=== PATIENT | male | born 1960 | race Caucasian/White ===

== ENCOUNTER 2021-11-15 12:48 | Emergency (ER) | payer OTHER, SELFPAY ==
[2021-11-15 13:08] VITALS: BP 124/78; PULSE 62; RESP 20; TEMP 36.6; O2SAT 96; BMI 45.6
--- NOTE | 2021-11-15 13:30 | XRR_ITS ---
PROCEDURE INFORMATION: Exam: XR Chest Exam date and time: 11/15/2021 1:30 PM Age: 60 years old Clinical indication: Shortness of breath; Patient HX: SOB TECHNIQUE: Imaging protocol: XR of the chest. Views: 1 view. Total images: 1 COMPARISON: No relevant prior studies available. FINDINGS: Lungs: No visible active interstitial or alveolar airspace disease. Rare calcified granuloma of antecedent disease. Pleural spaces: No pleural effusion. No pneumothorax. Heart/Mediastinum: Cardiac structures and configuration with mild arteriosclerosis. Bones/joints: Mild scoliotic curvature of the spine. Other findings: Obesity. XR/XR chest 1V portable [id number] IMPRESSION: Nonacute.
--- NOTE | 2021-11-15 14:34 | CTR_ITS ---
PROCEDURE INFORMATION: Exam: CTA Chest With Contrast Exam date and time: 11/15/2021 2:34 PM Age: 60 years old Clinical indication: Shortness of breath; Patient HX: C/O SOB; Additional info: Eval for pe TECHNIQUE: Imaging protocol: Computed tomographic angiography of the chest with contrast. 3D rendering (Not supervised by radiologist): MIP and/or 3D reconstructed images were created by the technologist. Total images: 1045 Radiation optimization: All CT scans at this facility use at least one of these dose optimization techniques: automated exposure control; mA and/or kV adjustment per patient size (includes targeted exams where dose is matched to clinical indication); or iterative reconstruction. Contrast material: OMNI 350; Contrast volume: 79 ml; Contrast route: INTRAVENOUS (IV); COMPARISON: CR (CHEST, ) 11/15/2021 3:49 PM RADIATION DOSE METRICS: Total DLP (mGy-cm): 653.46 FINDINGS: Pulmonary arteries: No visible evidence of pulmonary embolism/pulmonary arterial thrombus. Aorta: The thoracic aorta is nonaneurysmal. Mild arteriosclerosis. Tortuous thoracic aorta often seen in hypertensive cardiovascular disease. Lungs: COPD/chronic bronchitis. Rare bullous/bleb. Calcified granulomas of antecedent disease. No visible active interstitial or alveolar airspace disease. Pleural spaces: No pneumothorax. No pleural effusion. Heart: No cardiomegaly. No visible pericardial effusion. Moderately advanced 3 vessel coronary artery disease. Lymph nodes: Few small mediastinal and hilar lymph nodes of doubtful clinical significance. Liver: Diffuse fatty infiltration of the liver with hepatomegaly. Bones/joints: No visible acute osseous abnormality. Antecedent compression wedge deformity T12. Degenerative disease of the spine with spondylosis deformans primarily distal thoracic spine. Soft tissues: Marked morbid obesity. Other findings: Increased quantum mottle artifact which degrades image quality and detail assessment. Motion artifact. CT/CT angio chest PE protcl [id number] IMPRESSION: No visible evidence of pulmonary embolism/pulmonary arterial thrombus.
[2021-11-15 15:01] LABS: Basophils % 0.1 %; Eosinophils % 0.1 %; Hematocrit 47.9 % (42.0-52.0); Hemoglobin 15.3 g/dL (11.7-16.6); Lymphocytes % 23.7 %; Mean Corpuscular HGB Conc 31.9 g/dL (30.0-36.0); Mean Corpuscular Hemoglobin 29.1 pg (28.0-34.0); Mean Corpuscular Volume 91.2 fl (80-94); Mean Platelet Volume 10.2 fL (7.4-10.4); Monocytes % 11.7 %; Neutrophils # 5.38 10^3/uL (1.8-7.7); Neutrophils % 63.8 %; Nucleated Red Blood Cells % 0 %; Platelet Count 286 10^3/cmm (130-400); Red Blood Count 5.25 10^6/uL (4.1-5.3); Red Cell Distribution Width 15.8 % (12.1-15.1); White Blood Count 8.4 10^3/uL (4.0-10.0)
[2021-11-15 15:13] VITALS: BP 142/79; PULSE 62; RESP 16; O2SAT 95
[2021-11-15 15:24] LABS: INR 0.81 (0.8-1.2)
[2021-11-15 15:27] LABS: D Dimer 0.82 ug/mIFEU (0-0.59)
[2021-11-15 15:28] LABS: Lactate (Lactic Acid level) 1.6 mmol/L (0.5-2.2)
[2021-11-15 15:29] LABS: Alanine Aminotransferase 49 U/L (0-41); Albumin Level 3.8 g/dL (3.5-5.2); Alkaline Phosphatase 103 IU/L (40-130); Anion Gap 15.8 (5-19); Aspartate Amino Transferase 45 U/L (0-40); Blood Urea Nitrogen 18 mg/dL (8-23); Calcium 8.4 mg/dL (8.5-10.5); Carbon Dioxide 25 mmol/L (22-29); Chloride 103 mmol/L (98-107); Globulin 3.1 g/dL (1.3-4.6); Glomerular Filtration Rate 68.3 mL/min (90-130); Glucose 126 mg/dL (65-115); Osmolality Calculated 293 mOsm/kg (285-295); Potassium 3.8 mmol/L (3.5-5.1); Sodium 140 mmol/L (136-145); Total Bilirubin 0.2 mg/dL (0.15-1.2); Total Protein 6.9 g/dL (6.6-8.7)
--- NOTE | 2021-11-15 15:33 | ED_ITS ---
HPI - General Adult General: Chief complaint: Shortness of Breath/Dyspnea Stated complaint: sob, flu like symptoms, positive result at home Time Seen by Provider: 11/15/21 14:34 History of Present Illness: HPI narrative: 60-year-old male with history of diabetes, hypertension, smoking presents to the emergency room for concerns that I might have blood clot. . Patient was told that he is D-dimer is 2.8 and he googled his number which popped up online with concerns for possible blood clot. Patient has no pleuritic chest pain. Patient has been diagnosed with COVID since Tuesday and went to [facility] emergency room diagnosed with COVID. Patient tells me that at that time, CTA was not performed. Patient tells me that clinically he is feels better with the Tylenol and Zofran that he received since his last visit. Patient is tolerating p.o. without any difficulty. No complains of nausea vomiting or diarrhea. Patient says that his fevers under control. Patient denies any unilateral leg swelling, prior history of VTE's, hemoptosis or other issues. Onset: 5 days ago Duration:5 days Location:home Severity:moderate Associated symptoms: Reports dyspnea and malaise; Deny chest pain, nausea, rash, palpitations or vomiting Review of Systems Const: Reports: fever(s), fatigue and malaise; Denies: chills Eyes: Denies: change in vision ENMT: Denies: mouth pain Card: Denies: chest pain or palpitations Resp: Reports: dyspnea and non-productive cough GI: Denies: abdominal pain, nausea, vomiting or diarrhea : Denies: dysuria Musc: Denies: extremity pain Skin/Breast: Denies: rash or new lesions Neuro: Denies: weakness in extremities Psych: Reports: other (Normal mood) Mike/Lymph: Denies: easy bruising PFSH ED PFSH: Medical History COVID Diabetes Hypertension Smoking Social History (Updated 11/15/21 @ 15:36 by Marlyn Keita MD) Smoking and tobacco status: current every day smoker Alcohol intake: never Physical Exam Const: COMMON NORMALS: alert HENMT: COMMON NORMALS: atraumatic HEAD & SCALP: atraumatic MOUTH: moist mucous membranes not abnormal Eye: COMMON NORMALS: EOMs intact bilaterally and conjunctivae normal CONJUNCTIVA: Yes conjunctivae normal Neck/C-Spine: COMMON NORMALS: full ROM and supple Resp: COMMON NORMALS: normal respiratory effort and clear to auscultation bilaterally AUSCULTATION: clear to auscultation bilaterally Cardio: COMMON NORMALS: regular rate RATE: regular rate GI: COMMON NORMALS: Soft to palpation and non-tender PALPATION: Yes Soft to palpation Extremity: COMMON NORMALS: full ROM Neuro: SENSORIUM/ORIENTATION: Yes alert MOTOR EXAM: No Abnormal motor strength present and Other motor observations present (no focal motor deficits) Psych: COMMON NORMALS: speech normal SPEECH: Yes normal speech MOOD & AFFECT: Yes euthymic mood Course Vital Signs: Vital signs: Vital Signs Temperature 97.9 F 11/15/21 13:08 Pulse Rate 66 11/15/21 16:30 Respiratory Rate 20 H 11/15/21 16:30 Blood Pressure 115/61 11/15/21 16:30 Pulse Oximetry 95 11/15/21 16:30 MDM - General Adult MDM Narrative Medical decision making narrative: Patient is a 60-year-old male presenting to emergency room for concerns of srinivas given elevated D-dimer from previous ED evaluation. Patient is noted be satting greater than 95%. No acute focal findings on lung exam X-ray is negative for any acute finding. Creatinine within normal. CTA negative for PE. At the present time, I have offered patient monoclonal antibody infusion given age and comorbidities. However, patient declined at this time citing that he does not want to receive any antiviral therapies. Discussed the risk of not receiving medical infusion including possible future hospitalization and prolonging covid symptoms. Patient verablizes understanding of these risks and choose to not go through with MCA infusion. Rx tylenol PRN fever and zofran PRN nausea/vomiting He has a pulse ox at home and is instructed to use a pulse ox. I have given patient strict return precaution for any drops in the pulse ox to less than 88% while on oxygen. Disposition: Discharge. Patient counseled regarding diagnostic impression, treatment plan. Patient given ED strict return precautions to return for continuation, worsening, or development of new symptoms. Instructed to f/u w/ PCP regarding symptoms today. Patient verbalized understanding. Lab Data Result diagrams: 11/15/21 14:54 11/15/21 14:54 Labs: Lab Results 11/15/21 11/15/21 11/15/21 14:54 14:54 14:54 WBC 8.4 10^3/uL 10^3/uL (4.0-10.0) RBC 5.25 10^6/uL 10^6/uL (4.1-5.3) Hgb 15.3 g/dL g/dL (11.7-16.6) Hct 47.9 % % (42.0-52.0) MCV 91.2 fl fl (80-94) MCH 29.1 pg pg (28.0-34.0) MCHC 31.9 g/dL g/dL (30.0-36.0) RDW 15.8 % H % (12.1-15.1) Plt Count 286 10^3/cmm 10^3/cmm (130-400) MPV 10.2 fL fL (7.4-10.4) Neut % (Auto) 63.8 % % Lymph % (Auto) 23.7 % % [place] % (Auto) 11.7 % % Eos % (Auto) 0.1 % % Baso % (Auto) 0.1 % % Neut # (Auto) 5.38 10^3/uL 10^3/uL (1.8-7.7) Lymph # (Auto) 2.0 10^3/uL 10^3/uL (0.8-4.8) [place] # (Auto) 1.0 10^3/uL H 10^3/uL (0.2-0.9) Eos # (Auto) 0.0 10^3/uL 10^3/uL (0.0-0.8) Baso # (Auto) 0.0 10^3/uL 10^3/uL (0.0-0.1) Nucleated RBC % (auto) 0 % % Nucleated RBCs # 0.0 /100WBC /100WBC PT 11.40 SECONDS L SECONDS (12.1-14.9) INR 0.81 (0.8-1.2) D-Dimer 0.82 ug/mIFEU H ug/mIFEU (0-0.59) Sodium 140 mmol/L mmol/L (136-145) Potassium 3.8 mmol/L mmol/L (3.5-5.1) Chloride 103 mmol/L mmol/L (98-107) Carbon Dioxide 25 mmol/L mmol/L (22-29) Anion Gap 15.8 (5-19) BUN 18 mg/dL mg/dL (8-23) Creatinine 1.1 mg/dL mg/dL (0.7-1.2) GFR Calculation 68.3 mL/min L mL/min (90-130) Glucose 126 mg/dL H mg/dL (65-115) Calculated Osmolality 293 mOsm/kg mOsm/kg (285-295) Lactate Calcium 8.4 mg/dL L mg/dL (8.5-10.5) Total Bilirubin 0.2 mg/dL mg/dL (0.15-1.2) AST 45 U/L H U/L (0-40) ALT 49 U/L H U/L (0-41) Alkaline Phosphatase 103 IU/L IU/L (40-130) Total Protein 6.9 g/dL g/dL (6.6-8.7) Albumin 3.8 g/dL g/dL (3.5-5.2) Globulin 3.1 g/dL g/dL (1.3-4.6) 11/15/21 14:54 WBC RBC Hgb Hct MCV MCH MCHC RDW Plt Count MPV Neut % (Auto) Lymph % (Auto) [place] % (Auto) Eos % (Auto) Baso % (Auto) Neut # (Auto) Lymph # (Auto) [place] # (Auto) Eos # (Auto) Baso # (Auto) Nucleated RBC % (auto) Nucleated RBCs # PT INR D-Dimer Sodium Potassium Chloride Carbon Dioxide Anion Gap BUN Creatinine GFR Calculation Glucose Calculated Osmolality Lactate 1.6 mmol/L mmol/L (0.5-2.2) Calcium Total Bilirubin AST ALT Alkaline Phosphatase Total Protein Albumin Globulin Imaging Data^ Other Imaging: Radiologist's impression: [address] [id number] ReportSigned Patient: Paulette Gordillo #: [id number]: 1Acct#:[id number]/Sex: 60 / MADM Date: 11/15/21Loc: ERRoom/Bed:Attending Dr: Ordering Provider/Ordering MD: Alyssa Mclain , [employer]EVEL BUSINESS ANALYST- Date of Service: 11/15/21 Procedure(s): XR chest 1V portable [id number] Accession Number(s): [id number] Report Number: [id number] PROCEDURE INFORMATION: Exam: XR Chest Exam date and time: 11/15/2021 1:30 PM Age: 60 years old Clinical indication: Shortness of breath; Patient HX: SOB TECHNIQUE: Imaging protocol: XR of the chest. Views: 1 view. Total images: 1 COMPARISON: No relevant prior studies available. FINDINGS: Lungs: No visible active interstitial or alveolar airspace disease. Rare calcified granuloma of antecedent disease. Pleural spaces: No pleural effusion. No pneumothorax. Heart/Mediastinum: Cardiac structures and configuration with mild arteriosclerosis. Bones/joints: Mild scoliotic curvature of the spine. Other findings: Obesity. XR/XR chest 1V portable [id number] IMPRESSION: Nonacute. Dictated By:Maurice Mansfield By:Maurice Mansfield Date/Time:11/15/21 1611DD/ [address] [id number] Scan ReportSigned Patient: Paulette Gordillo #: [id number]: 1960cct#:[id number]/Sex: 60 / MADM Date: 11/15/21Loc: ERRoom/Bed:Attending Dr: Ordering Provider/Ordering MD: Marlyn Keita MD Date of Service: 11/15/21 Procedure(s): CT angio chest PE protcl [id number] Accession Number(s): [id number] Report Number: [id number] PROCEDURE INFORMATION: Exam: CTA Chest With Contrast Exam date and time: 11/15/2021 2:34 PM Age: 60 years old Clinical indication: Shortness of breath; Patient HX: C/O SOB; Additional info: Eval for pe TECHNIQUE: Imaging protocol: Computed tomographic angiography of the chest with contrast. 3D rendering (Not supervised by radiologist): MIP and/or 3D reconstructed images were created by the technologist. Total images: 1045 Radiation optimization: All CT scans at this facility use at least one of these dose optimization techniques: automated exposure control; mA and/or kV adjustment per patient size (includes targeted exams where dose is matched to clinical indication); or iterative reconstruction. Contrast material: OMNI 350; Contrast volume: 79 ml; Contrast route: INTRAVENOUS (IV); COMPARISON: CR (CHEST, ) 11/15/2021 3:49 PM RADIATION DOSE METRICS: Total DLP (mGy-cm): 653.46 FINDINGS: Pulmonary arteries: No visible evidence of pulmonary embolism/pulmonary arterial thrombus. Aorta: The thoracic aorta is nonaneurysmal. Mild arteriosclerosis. Tortuous thoracic aorta often seen in hypertensive cardiovascular disease. Lungs: COPD/chronic bronchitis. Rare bullous/bleb. Calcified granulomas of antecedent disease. No visible active interstitial or alveolar airspace disease. Pleural spaces: No pneumothorax. No pleural effusion. Heart: No cardiomegaly. No visible pericardial effusion. Moderately advanced 3 vessel coronary artery disease. Lymph nodes: Few small mediastinal and hilar lymph nodes of doubtful clinical significance. Liver: Diffuse fatty infiltration of the liver with hepatomegaly. Bones/joints: No visible acute osseous abnormality. Antecedent compression wedge deformity T12. Degenerative disease of the spine with spondylosis deformans primarily distal thoracic spine. Soft tissues: Marked morbid obesity. Other findings: Increased quantum mottle artifact which degrades image quality and detail assessment. Motion artifact. CT/CT angio chest PE protcl [id number] IMPRESSION: No visible evidence of pulmonary embolism/pulmonary arterial thrombus. Dictated By:Maurice Mansfield By:Maurice Mansfield Date/Time:11/15/21 1627DD/ 1434 Discharge Plan Discharge Patient Disposition: Home Clinical Impression: COVID, Acute dyspnea, Cough, Generalized weakness Condition: Stable Prescriptions: New acetaminophen 500 mg tablet 500 mg PO Q6H PRN (Reason: pain) 5 Days Qty: 20 0RF Discharge Orders: Discharge ED (Routine); Ordered 11/15/21 Ordered By: Marlyn Keita Discharge Diet: Advance as tolerated Discharge Activity: Increase activity as tolerated Patient Instructions: COVID-19 (Coronavirus Disease 2019) (ED) Activity Restrictions/Additional Instructions: Come back to the emergency room if your symptoms worsen, have any shortness of breath, fever/chills, dehydration, inability tolerate p.o., any difficulty breathing, or any new or concerning complaints. Please return the emergency room if your pulse ox reads less than 88%. Coding Level of Care Code ED Jewelsmith for Chg Fwd Exam Comprehensive
[2021-11-15 16:00] VITALS: BP 123/61; PULSE 58; RESP 15; O2SAT 97
[2021-11-15] MEDS: iohexol 350 mg/mL 100 mL Btl IV (16:04)
[2021-11-15 16:30] VITALS: BP 115/61; PULSE 66; RESP 20; O2SAT 95
--- NOTE | 2021-11-15 16:33 | PC.NURSE ---
REVIEWED DISCHARGE INSTRUCTIONS WITH PATIENT, PATIENT VERBALIZES UNDERSTANDING OF ALL INSTRUCTIONS, MEDICATIONS AND FOLLOW UPS, PATIENT AMBULATED FROM THE ED
== END 2021-11-15 16:52 | disposition home or self-care (01) ==
PROVIDERS: Nurse Practitioner Family; Emergency Provider Emergency Medicine
DX: U07.1 COVID-19 (principal); E11.9 Type 2 diabetes mellitus without complications; I10 Essential (primary) hypertension; F17.210 Nicotine dependence, cigarettes, uncomplicated
CPT/HCPCS: 36415; 71045; 71275; 80053; 83605; 85025; 85378; 85610; 99283; Q9967

== ENCOUNTER → 2021-12-08 14:52 | Outpatient (BNVA) | payer OTHER, SELFPAY | PROVIDERS: Visit Provider Physician Assistant | DX: M53.3 Sacrococcygeal disorders, not elsewhere classified (principal); S22.000A Wedge compression fracture of unspecified thoracic vertebra, initial encounter for closed fracture; X58.XXXA Exposure to other specified factors, initial encounter | CPT/HCPCS: 72070; 72220 ==

== ENCOUNTER 2022-05-10 07:25 | Outpatient (CLI) | payer OTHER, SELFPAY ==
[2022-05-10 08:24] VITALS: BMI 46.9
--- NOTE | 2022-05-10 08:27 | NMCV_ITS ---
NM aisha perf SPECT r/s* [id number] Rigoberto Gordillo Age: 61 Gender: M : 1960 Exam Date: 05/10/2022 08:27 Ordering Phys: Soham Werner M.D ([email or web address]) Technologist: SARA Iglesias Exam [facility] Indications: SHORTNESS OF BREATH STRESS TEST Please [facility] IMAGE PROTOCOL Rest/Stress 1 Lexiscan Day Radiopharmaceutical Dose (mCi) Administration Site Administered by Rest: Tc-99m 10.7 IV SARA Jeter Sestamibi Stress:Tc-99m 32.5 IV SARA Jeter Sestamibi Rest: 10-May-2022 60 Discovery 630 Stress: 10-May-2022 30 Discovery 630 0.4mg Lexiscan. Images obtained in supine and prone position. SPECT RESULTS Technical Quality: Excellent Raw Data Analysis: Normal Image Corrections: No attenuation or motion correction applied Summed Stress Score: 1 Summed Rest Score: 4 Summed Difference Score: 0 PERFUSION FINDINGS There is a small sized, fixed perfusion defect seen in apical inferior wall. This is consistent with small sized prior infarct seen in this territory. FUNCTIONAL RESULTS (calculated via Gated SPECT) Stress Image LV EF (%): 71 Stress EDV (mL):96 TID: 1 Stress ESV (mL):28 FUNCTIONAL FINDINGS: There is normal left ventricular systolic function. IMPRESSIONS 1. 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 No evidence of ischemia. 2. LV systolic function is normal Soham Werner MD (Electronically Signed) Final Date: 16 May 2022 01:16 S
--- NOTE | 2022-05-10 08:27 | ECG_ITS ---
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 Interpretive Statements NAME OF STUDY: LEXISCAN SESTAMIBI STRESS TEST INDICATION: Chest Pain, PROCEDURE: At the baseline, the EKG revealed normal sinus rhythm with a poor R wave progression.. The baseline blood pressure was 142/96 mm Hg with a heart rate of 81 beats/min. Lexiscan was infused over a period of 20 seconds. A total of 0.4 milligrams of Lexiscan was infused. The stress phase was continued for a total of 5 minutes. Heart rate at the end of the stress phase was 98 with a blood pressure 145/93. The EKG at the peak infusion revealed no significant changes occasional PVCs were noted on the monitor. Since the heart failure seems to be compensated likely, patient may not require any specific intervention at this time. Advised to continue on the current medications. Sestamibi was injected 20 seconds after the Lexiscan infusion. Blood pressure at the end of the recovery phase was 148/91 with a heart rate of 95 per minute. CONCLUSION: 1. No significant EKG changes with the LexiScan infusion 2. No LexiScan induced chest pain or cardiac arrhythmia 3. Normal blood pressure and heart rate response 4. Sestamibi/sestamibi perfusion scan pending; see separate report. Electronically Signed On 05-14-2022 11:20:49 CDT by Anderson Polanco M.D. [id number]
[2022-05-10] MEDS: aminophylline 25 mg/mL SDV 10 mL IVP (10:10)
[2022-05-10 10:18] VITALS: BP 145/93; PULSE 98
== END 2022-05-10 07:26 | disposition home or self-care (01) ==
PROVIDERS: PCP Nurse Practitioner Family; Visit Provider Internal Medicine
DX: R06.02 Shortness of breath (principal); R07.9 Chest pain, unspecified
CPT/HCPCS: 78452; 93017; A9500; J0280

== ENCOUNTER 2022-05-14 14:58 | Outpatient (CLI) | payer OTHER, SELFPAY ==
--- NOTE | 2022-05-14 15:15 | USCV_ITS ---
Rigoberto Gordillo Age: 61 Gender: M : 1960 Exam Date: 05/14/2022 15:10 Ordering Phys: Soham Werner M.D ([email or web address]) Technologist: Exam Location: [facility] [place] Indication: SOB BP: 140 / 80 HR: 110 Rhythm: Sinus Technical Quality: TECHNICALLY DIFFICULT EVEN WITH CONTRAST MEASUREMENTS (Male / Female) Normal Values 2D ECHO LV Ejection Fraction MOD 2C 52.6 % LV Ejection Fraction 2C AL 53.2 % DOPPLER AV Peak Velocity 212.0 cm/s LVOT Peak Velocity 93.0 cm/s MV Area PHT 5.0 cm squared Mitral E to A Ratio 0.7 MV E' Velocity 66.0 cm/s FINDINGS Left Ventricle Technically very limited quality echocardiogram because of poor ultrasonic windows. LV systolic function is normal with EF of 55 to 60%. No regional wall motion abnormalities are seen. Right Ventricle Not well-visualized Right Atrium Not well-visualized Left Atrium Not well-visualized Mitral Valve Not well-visualized Aortic Valve Not well-visualized Tricuspid Valve Not well-visualized Pulmonic Valve Not well-visualized Pericardium Not well-visualized Aorta Not well-visualized IVC CONCLUSIONS Technically very limited quality echocardiogram because of poor ultrasonic windows. LV systolic function is normal with EF of 55 to 60%. No regional wall motion abnormalities are seen. No comparison studies are available Soham Werner MD (Electronically Signed) Final Date: 19 May 2022 16:00 S
== END 2022-05-14 14:59 | disposition home or self-care (01) ==
LOC: RAD 14:59
PROVIDERS: PCP Nurse Practitioner Family; Visit Provider Internal Medicine
DX: R06.02 Shortness of breath (principal)
CPT/HCPCS: C8929; Q9956